=== PATIENT | female | born 1960 | race Caucasian/White ===

== ENCOUNTER 2022-06-12 08:09 | Outpatient (CLI) | payer OTHER, SELFPAY ==
--- NOTE | ~2022-06-12 | US_ITS ---
EXAMINATION: US arterial ankle brachial ind DATE: 06/12/2022 08:57 INDICATION: Absent pulse at the left lower limb TECHNIQUE: Segmental pressures and plethysmographic and Doppler waveforms of the brachial and lower e xtremity arteries were obtained. COMPARISON: None. FINDINGS: Right and left brachial artery pressures of 128 mm Hg and 114 mm Hg, respectively, are concordant (no rmal difference <= 30 mmHg). The right ankle-brachial index (ALEJANDRO) is 0.88 (normal >= 0.9-1.0). The right great toe-brachial index (TBI) is 0.19 (normal >= 0.65). Arterial Doppler waveforms are biphasic with brisk systolic upstrokes at both right posterior tibial and dorsalis pedis arteries. The left ALEJANDRO is 0.94. The left TBI is 0.63. Arterial Doppler waveforms are biphasic with brisk systol ic upstrokes at both left posterior tibial and dorsalis pedis arteries. IMPRESSION: 1. Arterial occlusive disease bilaterally lower limbs with mildly decreased right ALEJANDRO and moderately decreased TBI and borderline left ALEJANDRO with mildly decreased left TBI. Reviewed, dictated and finalized at location A. OR OF PODIATRY IMPRESSION: 1. Arterial occlusive disease bilaterally lower limbs with mildly decreased rig ht ALEJANDRO and moderately decreased TBI and borderline left ALEJANDRO with mildly decreas ed left TBI.
== END 2022-06-12 08:10 | disposition home or self-care (01) ==
PROVIDERS: PCP Internal Medicine; Visit Provider Orthopaedic Surgery
DX: R09.89 Other specified symptoms and signs involving the circulatory and respiratory systems (principal); I73.9 Peripheral vascular disease, unspecified
CPT/HCPCS: 93922